=== PATIENT | male | born 1995 | race African-American/Black ===

== ENCOUNTER 2016-06-06 12:35 | Emergency (ER) | payer MEDICAID ==
[~2016-06-06] VITALS: Ht 162.6 cm; Wt 49.0 kg
[2016-06-06 12:45] VITALS: BP 128/72
== END 2016-06-06 15:11 | disposition home or self-care (01) ==
LOC: ER 12:38
DX: J02.9 Acute pharyngitis, unspecified (principal)

== ENCOUNTER 2016-08-24 12:51 | Emergency (ER) | payer MEDICAID ==
[~2016-08-24] VITALS: Ht 165.1 cm; Wt 50.8 kg
[2016-08-24 13:51] VITALS: BP 117/75
== END 2016-08-24 13:56 | disposition home or self-care (01) ==
LOC: ER 12:51
DX: J02.9 Acute pharyngitis, unspecified (principal)